=== PATIENT | female | born 1975 | race Caucasian/White ===

== ENCOUNTER → 2017-12-07 | Outpatient (CLI) | payer OTHER ==
[~2017-12-07] MED LIST: PERC5TAB12 PO; PREN0.01 PO
[2017-12-07 13:21] LABS: HEMATOCRIT 39.2 % (35.0-46.0); HEMOGLOBIN 13.6 GM/DL (11.6-15.3); MEAN CELL VOLUME 92.3 FL (80.0-100.0); MEAN CORPUSCULAR HEMOGLOBIN 31.9 PG (27.0-34.0); MEAN CORPUSCULAR HGB CONC 34.6 % (32.0-36.0); MEAN PLATELET VOLUME 9.6 FL (7.0-11.0); PLATELET COUNT 208 TH/MM3 (150-450); RED BLOOD COUNT 4.25 MIL/MM3 (4.00-5.30); RED CELL DISTRIBUTION WIDTH 13.6 % (11.6-17.2); WHITE BLOOD COUNT 4.3 TH/MM3 (4.0-11.0)
[2017-12-07 13:33] LABS: GLUCOSE,FASTING 84 MG/DL (74-99)
[2017-12-07 13:36] LABS: CHOLESTEROL 180 MG/DL (120-200); TRIGLYCERIDES 48 MG/DL (42-150)
[2017-12-07 13:46] LABS: CHOLESTEROL/ HDL RATIO 2.44 RATIO; FREE T4 0.78 NG/DL (0.76-1.46); HDL CHOLESTEROL 73.6 MG/DL (40.0-60.0); LDL CHOLESTEROL 97 MG/DL (0-99)
[2017-12-07 17:10] LABS: HEMOGLOBIN A1C 5.4 % (4.3-6.0)
== END ==
LOC: PLAB 08:14
PROVIDERS: ATTEND Obstetrics & Gynecology
DX: N92.1 Excessive and frequent menstruation with irregular cycle (principal); Z13.220 Encounter for screening for lipoid disorders; Z13.29 Encounter for screening for other suspected endocrine disorder; Z13.1 Encounter for screening for diabetes mellitus
CPT/HCPCS: 36415; 80061; 82947; 83001; 83036; 84439; 84443; 84480; 85027